=== PATIENT | male | born 1945 | race Caucasian/White ===

== ENCOUNTER 2017-09-03 02:39 | Emergency (ER) | payer MEDICARE, OTHER ==
[~2017-09-03] VITALS: Ht 154.9 cm; Wt 72.9 kg
[2017-09-03 02:44] VITALS: Ht 154.9 cm; Wt 72.9 kg
[2017-09-03] MEDS ORDERED: ACET500C5 PO (04:54)
[2017-09-03] MEDS ORDERED: AMLO2.5T78 PO (05:04)
[2017-09-03] MEDS ORDERED: TIOT18CA INHALATION (05:04)
[2017-09-03] MEDS ORDERED: eloquist (05:04)
[2017-09-03] MEDS ORDERED: CLON-379 PO (05:04)
[2017-09-03] MEDS ORDERED: ALBU8.5H3 INH (05:04)
--- NOTE | 2017-09-03 05:06 | ERD ---
ER Documentation Chief Complaint Chief Complaint PT C/O R MIDDLE FINGER PAIN/SWELLING X1HR D/T USING DEVICE TO CRACK PEANUTS HPI 72 year old male presents here to emergency department for complaints of bruising and some swelling on the right middle finger, patient was using a metal object to try to crack open multiple peanuts earlier today. Patient has been using it continuously this afternoon, noted some pain on the tip of the right middle finger and some bruising and swelling. Patient described the pain as throbbing pain 4/10 scale, accompanied with bruising, patient denies any deformity. At this time, pain is resolved. Patient denies any other joint pains. Patient is currently on Eliquis for blood thinners. ROS All systems reviewed and are negative except as per history of present illness. Medications Home Meds Active Scripts Acetaminophen* (Tylophen*) 500 Mg Capsule, 1 CAP PO Q6H Y for PAIN AND OR ELEVATED TEMP, #20 CAP Prov:[facility] 09/03/17 Reported Medications Clonidine Hcl* (Clonidine Hcl*) Unknown Strength Tab, PO Q6, TAB 09/03/17 Amlodipine Besylate* (Amlodipine Besylate*) Unknown Strength Tablet, PO DAILY, # 30 TAB 09/03/17 Albuterol Sulfate* (Proair HFA*) Unknown Strength Hfa.aer.ad, INH Q4H Y for WHEEZING AND SOB, #1 INHALER 09/03/17 Tiotropium [place]* (Spiriva*) Unknown Strength Cap.w.dev, INHALATION DAILY, # 30 CAP 09/03/17 [eloquist] Unknown Strength No Conflict Check 09/03/17 Allergies Allergies: Coded Allergies: No Known Allergy (Unverified , 09/03/17) PMhx/Soc Medical and Surgical Hx: pt denies Medical Hx, pt denies Surgical Hx FmHx Family History: No coronary disease, No diabetes, No other Physical Exam Vitals Vital Signs Date Time Temp Pulse Resp B/P Pulse Ox O2 Delivery O2 Flow Rate FiO2 09/03/17 02:44 97.4 56 20 118/69 97 Physical Exam GENERAL: The patient is well developed and appropriate for usual state of health, in no apparent distress. CHEST: Clear to auscultation bilaterally. There are no rales, wheezes or rhonchi. HEART: Regular rate and rhythm. No murmurs, clicks, rubs or gallops. No S3 or S4. ABDOMEN: Soft, nontender and nondistended. Good bowel sounds. No rebound or guarding. No gross peritonitis. No gross organomegaly or masses. No Liu sign or McBurney point tenderness. BACK: No midline or flank tenderness. EXTREMITIES: Full range of motion of the right middle finger without any restriction, some bruising noted, no deformity noted. Equal pulses bilaterally. There is no peripheral clubbing, cyanosis or edema. No focal swelling or erythema. Full range of motion. Grossly neurovascularly intact. NEURO: Alert and oriented. Cranial nerves 2-12 intact. Motor strength in all 4 extremities with 5/5 strength. Sensation grossly intact. Normal speech and gait. SKIN: There is no apparent rash or petechia. The skin is warm and dry. HEMATOLOGIC AND LYMPHATIC: There is no evidence of excessive bruising or lymphedema. No gross cervical, axillary, or inguinal lymphadenopathy. Procedures/MDM Medical Decision Making: Patient's pain is most likely consistent with a finger contusion. There is no suspicion for neurovascular compromise. Patient has intact sensation and circulation of the affected extremity. There is low suspicion for septic arthritis. Patient does not have any fever. Radiology exams of the affected area does not show any fracture or dislocation. Disposition: Home. Patient is advised to take [id number] Tylenol for pain patient was advised to elevate the affected area and apply ice on affected area. Patient was advised that if symptoms are worse, numbness, tingling, high fever, unable to move joint, worsening symptoms, to return to emergency department immediately. Otherwise, patient is advised to follow up with the primary care doctor in 5-7 days for reevaluation of symptoms. Disclaimer: Inadvertent spelling and grammatical errors are likely due to EHR/ dictation software use and do not reflect on the overall quality of patient care. Also, please note that the electronic time recorded on this note does not necessarily reflect the actual time of the patient encounter. Departure Diagnosis: Primary Impression: Finger contusion Encounter type: initial encounter Finger: middle finger Damage to nail status: without damage Laterality: right Qualified Code: S60.031A - Contusion of right middle finger without damage to nail, initial encounter Condition: Stable Patient Instructions: Finger Contusion JESSICA LEE NP Sep 03, 2017 05:06
== END 2017-09-03 05:14 | disposition home or self-care (01) ==
LOC: FTE 02:39
DX: S60.031A Contusion of right middle finger without damage to nail, initial encounter (principal); X58.XXXA Exposure to other specified factors, initial encounter; Y92.9 Unspecified place or not applicable
CPT/HCPCS: 99283